=== PATIENT | male | born 1975 | race Hispanic/Latino ===

== ENCOUNTER 2022-09-09 15:38 | Emergency (ER) | payer OTHER ==
[~2022-09-09] VITALS: Ht 182.9 cm; Wt 108.9 kg
[2022-09-09] MEDS ORDERED: DEXAMETHASONE SOD PHOS INJ 4 MG/ML SDV ONE (15:48)
[2022-09-09] MEDS ORDERED: SODIUM CHLORIDE 0.9% 1000ML 1,000 ML ONE (15:49)
[2022-09-09] MEDS ORDERED: DIPHENHYDRAMINE HCL INJ 50 MG/ML VIAL ONE (15:49)
[2022-09-09] MEDS ORDERED: FAMOTIDINE 20 MG/2 ML VIAL IV ONE ×2 (15:49→16:00)
[2022-09-09] MEDS ORDERED: SODIUM CHLORIDE 0.9% 1000ML 1,000 ML IV STA (15:50)
[2022-09-09] MEDS ORDERED: ALBUTEROL/IPRATROPIUM 3 ML NEB NEB ONE (16:00)
[2022-09-09] MEDS ORDERED: DIPHENHYDRAMINE HCL INJ 50 MG/ML VIAL IV ONE (16:00)
[2022-09-09] MEDS ORDERED: DEXAMETHASONE SOD PHOS INJ 4 MG/ML SDV IV ONE (16:15)
[2022-09-09] MEDS ORDERED: ALBUTEROL/IPRATROPIUM 3 ML NEB ONE (16:17)
[2022-09-09] MEDS ORDERED: BENADRYL25 M1 PO (16:20)
[2022-09-09] MEDS ORDERED: PREDNISONE20 MG PO (16:20)
[2022-09-09] MEDS ORDERED: LORATADINE10 MG PO (16:20)
[2022-09-09] MEDS ORDERED: EPIPEN JR0.15 MG/01 SQ (16:20)
[2022-09-09] MEDS ORDERED: FAMOTIDINE20 MG PO (16:20)
[2022-09-09 16:36] VITALS: BP 209/111
== END 2022-09-09 16:42 | disposition home or self-care (01) ==
LOC: FSED 15:51
DX: R06.02 Shortness of breath (principal); T78.2XXA Anaphylactic shock, unspecified, initial encounter; I16.0 Hypertensive urgency
CPT/HCPCS: 80053; 99283; J1100; J1200; J7030

== ENCOUNTER 2024-03-02 05:39 | Emergency (ER) | payer OTHER ==
[~2024-03-02] VITALS: Ht 180.3 cm; Wt 117.5 kg
[2024-03-02 05:39] VITALS: TEMP 98.9
[~2024-03-02 05:39] MED LIST: AMLODIPINE BESY10 MG PO; BENADRYL25 M1 PO; EPIPEN JR0.15 MG/01 SQ; FAMOTIDINE20 MG PO; LORATADINE10 MG PO; PREDNISONE20 MG PO
[2024-03-02] MEDS: METHYLPREDNISOLONE SOD SUCC 40 MG/ML VIAL 1ML IV ONE (07:03)
[2024-03-02 07:04] VITALS: BP 209/131
[2024-03-02] MEDS: HYDRALAZINE HCL 20 MG/ML VIAL IV ONE (07:04)
[2024-03-02] MEDS: TRAMADOL HCL 50 MG TAB PO ONE (07:08)
[2024-03-02] MEDS: METHYLPREDNISOLONE SOD SUCC 125 MG/2ML VIAL IV ONE (07:27)
[2024-03-02 07:35] VITALS: PULSE 68; RESP 18; O2SAT 98
== END 2024-03-02 07:48 | disposition home or self-care (01) ==
LOC: FSED 06:07
DX: M79.672 Pain in left foot (principal); M10.9 Gout, unspecified; M79.89 Other specified soft tissue disorders; I10 Essential (primary) hypertension; E78.5 Hyperlipidemia, unspecified; R94.31 Abnormal electrocardiogram [ECG] [EKG]
CPT/HCPCS: 80053; 85025; 93005; 96374; 99284; J0360; J2919 ×2

== ENCOUNTER 2024-07-05 17:15 | Emergency (ER) | payer OTHER ==
[~2024-07-05] VITALS: Ht 180.3 cm; Wt 115.5 kg
[2024-07-05] MEDS ORDERED: HYDROCHLOROTHIA25 MG PO (17:31)
[2024-07-05] MEDS ORDERED: ATENOLOL50 MG PO (17:31)
[2024-07-05] MEDS ORDERED: BACTRIM DS TAB1 EACH PO (17:40)
[2024-07-05 17:45] VITALS: PULSE 65; RESP 18; TEMP 98.5; O2SAT 98
== END 2024-07-05 17:45 | disposition home or self-care (01) ==
LOC: FSED 17:21
DX: M25.522 Pain in left elbow (principal); L03.114 Cellulitis of left upper limb; I10 Essential (primary) hypertension; E78.5 Hyperlipidemia, unspecified; M10.9 Gout, unspecified; H91.8X2 Other specified hearing loss, left ear
CPT/HCPCS: 99283